=== PATIENT | male | born 1995 | race Hispanic/Latino ===

== ENCOUNTER 2018-11-28 09:57 | Emergency (ER) | payer BC, OTHER, SELFPAY ==
--- NOTE | 2018-11-28 11:21 | ER ---
Nurse's Notes [facility] Name: Melina Valladares Age: 23 yrs Sex: Male : 1995 Arrival Date: 11/28/2018 Time: 10:02 Bed 10 Private MD: John Nelson Diagnosis: Person with feared health complaint in whom no diagnosis is made Presentation: 11/28 10:15 Presenting complaint: Patient states: the mother of my kids was tested positive for STD hj yesterday; i just wanted to be tested too;. Transition of care: patient was not received from another setting of care. Onset of symptoms was November 28, 2018. Risk Assessment: Do you want to hurt yourself or someone else? Patient reports no desire to harm self or others. Initial Sepsis Screen: Does the patient meet any 2 criteria? No. Patient's initial sepsis screen is negative. Does the patient have a suspected source of infection? No. Patient's initial sepsis screen is negative. Care prior to arrival: None. 10:15 Method Of Arrival: Ambulatory 10:15 Acuity: KARAN 4 hj Historical: - Allergies: 10:16 No Known Allergies; hj - Home Meds: 10:16 None [Active]; hj - PMHx: 10:16 None; hj - PSHx: 10:16 None; hj - Immunization history:: Adult Immunizations up to date. - Social history:: Smoking status: Patient/guardian denies using tobacco. - Ebola Screening: : No symptoms or risks identified at this time. Screenin:30 Abuse screen: Denies threats or abuse. Denies injuries from another. Nutritional hb screening: No deficits noted. Tuberculosis screening: No symptoms or risk factors identified. Fall Risk None identified. Assessment: 10:30 General: Appears in no apparent distress. Behavior is calm, cooperative. Pain: Denies hb pain. Neuro: Level of Consciousness is awake, alert, obeys commands, Oriented to person, place, time, situation. Cardiovascular: Capillary refill < 3 seconds Patient's skin is warm and dry. Respiratory: Airway is patent Respiratory effort is even, unlabored, Respiratory pattern is regular, symmetrical. GI: No signs and/or symptoms were reported involving the gastrointestinal system. : No signs and/or symptoms were reported regarding the genitourinary system. EENT: No signs and/or symptoms were reported regarding the EENT system. Derm: No signs and/or symptoms reported regarding the dermatologic system. Musculoskeletal: No signs and/or symptoms reported regarding the musculoskeletal system. Vital Signs: 10:16 BP 121 / 68; Pulse 74; Resp 18; Temp 98.6(TE); Pulse Ox 100% on R/A; Weight 83.91 kg; hj Height 6 ft. 0 in. (182.88 cm); 10:16 Body Mass Index 25.09 (83.91 kg, 182.88 cm) ED Course: 10:02 Patient arrived in ED. mr 10:02 None, None is Private Physician. mr 10:02 John Nelson MD is Private Physician. mr 10:16 Triage completed. hj 10:17 Arm band placed on left wrist. 10:18 Dajuan Garsia PA is PHCP. [facility] 10:18 Bro Phelps MD is Attending Physician. [facility] 10:28 Mariluz Martinez, SAMI is Primary Nurse. hb 10:30 Patient has correct armband on for positive identification. Call light in reach. hb 10:30 No provider procedures requiring assistance completed. hb 11:04 Patient did not have IV access during this emergency room visit. hb 11:20 John Nelson MD is Referral Physician. [facility] Administered Medications: No medications were administered Outcome: 11:20 Discharge ordered by . [facility] 11:20 Medical screen evaluation completed per provider. Patient declined treatment. hb 11:20 Condition: stable 11:20 Instructed on follow up and referral plans. 11:21 Patient left the ED. hb Signatures: Dajuan Garsia PA PA [facility] Stephanie An Remi Carrion, RN RN Mariluz Martinez, SAMI RN hb Corrections: (The following items were deleted from the chart) 10:18 10:16 Pulse 74bpm; Resp 18bpm; Pulse Ox 100% RA; Temp 98.6F Temporal; 83.91 kg; Height 6 ft. 0 in.; BMI: 25.0; hj
--- NOTE | 2018-11-28 11:21 | EDPHYS ---
Physician Documentation [facility] Name: Melina Valladares Age: 23 yrs Sex: Male : 1995 Arrival Date: 11/28/2018 Time: 10:02 Bed 10 Private MD: John Nelson ED Physician Bro Phelps HPI: 11/28 10:50 This 23 yrs old Male presents to ER via Ambulatory with complaints of STD jmm Exposure. 10:50 The patient presents with a known STD exposure, with a history of engaging in sex with jmm a single partner. Associated signs and symptoms: The patient has no apparent associated signs or symptoms. This is a 23 year old male with no chronic medical conditions that presents to the ED complaining of STD exposure. Patient states his girlfriend was recently diagnosed with HPV. Patient denies any symptoms. Denies abdominal pain. Patient stated he just wanted to get checked out. . Historical: - Allergies: 10:16 No Known Allergies; hj - Home Meds: 10:16 None [Active]; hj - PMHx: 10:16 None; hj - PSHx: 10:16 None; hj - Immunization history:: Adult Immunizations up to date. - Social history:: Smoking status: Patient/guardian denies using tobacco. - Ebola Screening: : No symptoms or risks identified at this time. ROS: 10:50 Constitutional: Negative for fever, chills, and weight loss, Cardiovascular: Negative jmm for chest pain, palpitations, and edema, Respiratory: Negative for shortness of breath, cough, wheezing, and pleuritic chest pain. 10:50 : Negative for urinary symptoms, hematuria, flank pain. 10:50 All other systems are negative. Exam: 10:50 Constitutional: This is a well developed, well nourished patient who is awake, alert, jmm and in no acute distress. Head/Face: atraumatic. Eyes: EOMI, no conjunctival erythema appreciated ENT: Moist Mucus Membranes Neck: Trachea midline, Supple Chest/axilla: Normal chest wall appearance and motion. Cardiovascular: Regular rate and rhythm. No edema appreciated Respiratory: Normal respirations, no respiratory distress appreciated 10:50 Back: Normal ROM Skin: General appearance color normal MS/ Extremity: Moves all extremities, no obvious deformities appreciated, no edema noted to the lower extremities Neuro: Awake and alert, normal gait Psych: Behavior is normal, Mood is normal, Patient is cooperative and pleasant 10:50 Abdomen/GI: Inspection: abdomen appears normal, Palpation: abdomen is soft and non-tender, in all quadrants. Vital Signs: 10:16 BP 121 / 68; Pulse 74; Resp 18; Temp 98.6(TE); Pulse Ox 100% on R/A; Weight 83.91 kg; hj Height 6 ft. 0 in. (182.88 cm); 10:16 Body Mass Index 25.09 (83.91 kg, 182.88 cm) MDM: 10:50 Patient medically screened. [facility] 10:50 Data reviewed: vital signs, nurses notes. Counseling: I had a detailed discussion with [facility] the patient and/or guardian regarding: the historical points, exam findings, and any diagnostic results supporting the discharge/admit diagnosis, the need for outpatient follow up, to return to the emergency department if symptoms worsen or persist or if there are any questions or concerns that arise at home. ED course: Patient is alert and non toxic in appearance in the ED. Patient has no abdominal pain. Patient is asymptomatic. Patient given information on STD clinic. Patient was given return precautions. . Administered Medications: No medications were administered Disposition: 10:56 STD Exposure. [facility] 11:09 Chart complete. [facility] 12:12 Co-signature as Attending Physician, Bro Phelps MD I agree with the assessment and kdr plan of care. Disposition: 11/28/18 11:20 Discharged to Home. Impression: Person with feared health complaint in whom no diagnosis is made. - Condition is Stable. - Medication Reconciliation Form, Thank You Letter, Antibiotic Education, Prescription Opioid Use form. - Follow up: John Nelson MD; When: 2 - 3 days; Reason: Recheck today's complaints, Continuance of care, Re-evaluation by your physician. Signatures: Bro Phelps MD MD kdr Mickail, Joel, PA PA [facility] Remi Carrion RN RN Mariluz Martinez RN RN Corrections: (The following items were deleted from the chart) 11:21 11:20 11/28/2018 11:20 Discharged to Home. Impression: Person with feared health hb complaint in whom no diagnosis is made. Condition is Stable. Forms are Medication Reconciliation Form, Thank You Letter, Antibiotic Education, Prescription Opioid Use. Follow up: John Nelson; When: 2 - 3 days; Reason: Recheck today's complaints, Continuance of care, Re-evaluation by your physician. jared
== END 2018-11-28 11:21 | disposition home or self-care (01) ==
LOC: ER 09:57
DX: Z71.1 Person with feared health complaint in whom no diagnosis is made (principal)
CPT/HCPCS: 99281